=== PATIENT | female | born 1990 | race African-American/Black ===

== ENCOUNTER 2019-07-23 15:59 | Emergency (ER) | payer BC ==
[2019-07-23 16:03] VITALS: BP 115/76; PULSE 84; TEMP 98; BMI 16.2
--- NOTE | 2019-07-23 16:57 | PDOC ---
History of Present Illness - General Chief Complaint: Vaginal Sxs Stated Complaint: VAG BLEEDING Time Seen by Provider: 07/23/19 16:10 History Source: Patient - History of Present Illness Initial Comments: 07/23/19 18:17 Chief complaint: Exposure to chlamydia Is a 29-year-old female, no significant medical problems who states that her boyfriend was just diagnosed with chlamydia. Patient has been claiming of on and off vaginal bleeding, but has her period now. She was seen in urgent care 2 days ago had a negative test. She denies any discharge or pain. Patient came to get treated for the chlamydia. GENERAL/CONSTITUTIONAL: No fever, weakness. dizziness HEAD, EYES, EARS, NOSE AND THROAT: No change in vision. No ear pain or discharge. No sore throat. CARDIOVASCULAR: No chest pain RESPIRATORY: No shortness of breath or cough GASTROINTESTINAL: No pain, nausea, vomiting, diarrhea or constipation GENITOURINARY: No dysuria, + menstrual bleeding MUSCULOSKELETAL: No neck or back pain SKIN: No rash NEUROLOGIC: No headache, vertigo, loss of consciousness, or loss of sensation. GENERAL: The patient is awake, alert, and fully oriented, in no acute distress. HEAD: Normal with no signs of trauma. EYES: Pupils equal, round and reactive to light, sclera anicteric, conjunctiva clear. ENT: pharynx: no erythema, no exudate, uvula midline NECK: supple CHEST: clear, nontender, rr ABD: soft, nontender BACK: no tenderness or signs of injury EXTREMITIES: Normal range of motion, no edema. NEUROLOGICAL: Normal speech, normal gait. SKIN: Warm, Dry Past History - Past Medical History Allergies/Adverse Reactions: Allergies Allergy/AdvReac Type Severity Reaction Status Date / Time No Known Allergies Allergy Verified 07/23/19 16:03 Home Medications: Ambulatory Orders Cephalexin [Keflex] 1,000 mg PO BID #28 capsule 07/23/19 COPD: No - Psycho Social/Smoking Cessation Hx Smoking History: Never smoked *Physical Exam - Vital Signs Last Vital Signs Temp Pulse Resp BP Pulse Ox 98 F 84 18 115/76 99 07/23/19 16:01 07/23/19 16:01 07/23/19 16:01 07/23/19 16:01 07/23/19 16:01 Medical Decision Making - Medical Decision Making Patient here to be treated for chlamydia that her boyfriend was just diagnosed with. Patient states that they have been together for several months but they never got tested prior to being together. Patient denies any illness. Patient states she has her menses now. Patient denies any other complaints. Patient will get test, UA, STD screening. 07/23/19 18:09 Patient is not , patient has small UTI, will treat with Rocephin, Zithromax, and sent home on Keflex. Encourage patient and partner to follow-up with STD/HIV clinics at [facility] to get retested and further evaluation to make sure they do not pass the infections back and forth. Discussed issues, findings, results, applicable medications and treatments and follow-up. All these were understood and all questions were answered 07/23/19 18:18 He was fully discussed with patient that she should not have sex with her boyfriend until they are both fully treated and reevaluated and also checked for HIV and other issues to make sure they do not keep passing infections back and forth Discharge - Discharge Information Problems reviewed: Yes Clinical Impression/Diagnosis: STD exposure UTI (urinary tract infection) Qualifiers: Urinary tract infection type: site unspecified Hematuria presence: with hematuria Qualified Code(s): N39.0 - Urinary tract infection, site not specified Condition: Stable Disposition: HOME - Admission No - Additional Discharge Information Prescriptions: Cephalexin [Keflex] 1,000 mg PO BID #28 capsule - Follow up/Referral - Patient Discharge Instructions Patient Printed Discharge Instructions: Urinary Tract Infection Additional Instructions: Drink 2-3 L of water daily Take the Keflex 1000 mg twice a day for 7 days take Acidophilus to help prevent yeast infection or stomach upset Return ER if fever, vomiting, feeling sicker Follow-up with your doctor in 2-3 days As discussed, follow-up at the [facility] to get retested and further evaluated and get HIV testing and make sure that you and your sexual partner will not keep passing infections back and forth You are given a handout with available offices and clinic schedule - Post Discharge Activity
[2019-07-23] MEDS ORDERED: AZITHROMYCIN 500 MG TABLET PO ONE (16:59)
[2019-07-23] MEDS ORDERED: AZITHROMYCIN 250 MG TABLET ONE (17:14)
[2019-07-23] MEDS ORDERED: LIDOCAINE HCL 2% (20ML MULTI-DOSE VIAL) ONE (17:18)
[2019-07-23 17:45] LABS: EPI CELLS 5.5 /HPF (0-5/HPF); HYALINE CASTS 5 /lpf (0-8); PH,URINE 5.5 (5.0-8.0); URINE APPEARANCE CLOUDY; URINE BACTERIA 81.2 /hpf (NEGATIVE); URINE BILIRUBIN NEGATIVE (NEGATIVE); URINE COLOR YELLOW; URINE GLUCOSE (UA) NEGATIVE (NEGATIVE); URINE KETONE 1+ (NEGATIVE); URINE LEUK ESTERASE 1+ (NEGATIVE); URINE NITRITE NEGATIVE (NEGATIVE); URINE PROTEIN 2+ (NEGATIVE); URINE RBC 26 /hpf (0-4); URINE WBC 230 /hpf (0-5)
== END 2019-07-23 18:17 | disposition home or self-care (01) ==
LOC: JERFT 15:59
DX: N39.0 Urinary tract infection, site not specified (principal); Z11.3 Encounter for screening for infections with a predominantly sexual mode of transmission
CPT/HCPCS: 36415; 81003; 84703; 87077; 87086; 87491; 87591; 99282-25